=== PATIENT | male | born 1995 | race Caucasian/White ===

== ENCOUNTER 2020-09-25 16:45 | Emergency (ER) | payer SELFPAY ==
[2020-09-25 16:50] VITALS: BP 135/88; PULSE 87; RESP 16; TEMP 36.9; O2SAT 100; BMI 31.5
[2020-09-25 17:05] VITALS: BP 135/88; PULSE 76; O2SAT 100
[2020-09-25 17:44] VITALS: BP 135/90; PULSE 78; O2SAT 100
--- NOTE | 2020-09-25 17:44 | HMH.EDGENADL ---
ED Disposition Clinical Impression: Corneal foreign body Qualifiers: Encounter type: initial encounter Laterality: left Qualified Code(s): T15.02XA - Foreign body in cornea, left eye, initial encounter Disposition: Home, Self-Care Condition on Discharge: Good Instructions: DI for Corneal Foreign Body-Eye Additional Instructions: Use erythromycin ointment 4 times a day for 2 days. Follow-up with eye doctor if not improved in [address] Ron Coles [facility] [address] [place] [address] Additional instructions for EYE PAIN or INJURY: Follow up with an safety clothing and equipment developer as soon as possible. Return to the emergency department if severe pain, loss of vision, pus drainage, severe swelling or redness of eyelids. Referrals: PCP,No [Primary Care Provider] - - Critical Care Critical Care Time: No Attestation: On 09/25/20, the high probability of a clinically significant, sudden or life threatening deterioration of the following system(s) required my full and direct attention, intervention and personal management. The time I documented below is in addition to time spent performing reported procedures but includes the following listed in this critical care notation. Medical Decision Making - Zach Inquiry Pt receiving controlled substance: No Vital Signs: 09/25/20 16:50 09/25/20 17:05 09/25/20 17:44 Temperature 98.5 F Temperature Source Oral Pulse Rate [Right Radial] 87 76 78 Respiratory Rate 16 Blood Pressure [Right Arm] 135/88 135/88 135/90 Blood Pressure Mean [Right Arm] 103 103 105 Blood Pressure Source [Right Arm] Automatic Cuff Automatic Cuff Automatic Cuff Blood Pressure Position [Right Arm] Sitting Sitting Sitting 02 Sat by Pulse Oximetry 100 100 100 Oxygen Delivery Method Room Air Room Air Room Air General Adult HPI - General Chief complaint: Eye Problems Stated complaint: FB in eye Time Seen by Provider: 09/25/20 17:30 Mode of Arrival: Ambulatory Limitations: No Limitations Description of Symptoms (Recalled from ER Triage Doc. 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 Pt denies vision changes, pt reports flushing eye multiple time captain room service, states occurred approx 1.5 hours captain room service. - History of Present Illness HPI narrative: States a couple of hours ago he was doing some grinding and welding and got something in his left eye. No loss of vision. - Related Data Home Medications Medication Instructions Recorded Confirmed No Known Home Medications 09/25/20 09/25/20 Allergies Allergy/AdvReac Type Severity Reaction Status Date / Time No Known Allergies Allergy Verified 09/25/20 17:00 [facility] History - Hepatitis A Screen Drug use history?: No High risk sexual behaviors?: No History of sexually transmitted infection?: No Currently employed?: No Childcare worker?: No Do you have indoor plumbing?: Yes Do you have electricity?: Yes Attestation statement:: This patient has been screened for Hepatitis A risk factors. I have reviewed the patient's past medical history: Yes ROS Obtained: Yes Systems reviewed as appropriate & no additional complaints - Eyes Eyes: Denies blind spots, Denies loss of vision, Denies photophobia, Reports other (Foreign body sensation) Physical Exam - General General appearance: alert, in no apparent distress - Eye Eye exam: Present: PERRL, EOMI, conjunctival injection. Absent: periorbital swelling - Expanded Eye Exam Anterior chamber: right: normal inspection Both Eyes Image: 1 - Tiny metallic foreign body without rest on surface of cornea Comment: Tiny area of fluorescein uptake at site of foreign body only. - Respiratory Respiratory exam: Present: normal lung sounds bilaterally. Absent: respiratory distress - Cardiova
--- NOTE | 2020-09-25 17:54 | PC.NURSE ---
Pt visual test, Both eyes 20/20. Right eye 20/20, left eye 20/25
[2020-09-25 18:17] VITALS: BP 135/90; PULSE 78; RESP 20; TEMP 36.9; O2SAT 100
== END 2020-09-25 18:21 | disposition home or self-care (01) ==
PROVIDERS: Emergency Provider Emergency Medicine
DX: T15.02XA Foreign body in cornea, left eye, initial encounter (principal); W89.8XXA Exposure to other man-made visible and ultraviolet light, initial encounter; Y92.89 Other specified places as the place of occurrence of the external cause
CPT/HCPCS: 65220; 99282

== ENCOUNTER → 2022-12-11 08:51 | Outpatient (CLI) | payer SELFPAY | PROVIDERS: PCP Internal Medicine; Visit Provider Internal Medicine | DX: R07.89 Other chest pain (principal); I10 Essential (primary) hypertension | CPT/HCPCS: 93306 ==